=== PATIENT | male | born 1940 | race Caucasian/White ===

== ENCOUNTER → 2017-04-12 | Outpatient (CLI) | payer MEDICARE | LOC: LAB 07:05 | DX: I48.0 Paroxysmal atrial fibrillation (principal) ==

== ENCOUNTER → 2017-04-16 | Outpatient (CLI) | payer MEDICARE | LOC: RAD 12:43 | DX: M47.816 Spondylosis without myelopathy or radiculopathy, lumbar region (principal) ==

== ENCOUNTER → 2017-04-26 | Outpatient (CLI) | payer MEDICARE | LOC: LAB 07:38 | DX: I48.0 Paroxysmal atrial fibrillation (principal) ==

== ENCOUNTER 2017-05-03 08:30 | Outpatient (RCR) | payer MEDICARE | END 2017-05-03 09:00 | disposition home or self-care (01) | LOC: PT 08:30 | DX: M51.26 Other intervertebral disc displacement, lumbar region (principal); M12.88 Other specific arthropathies, not elsewhere classified, other specified site ==

== ENCOUNTER → 2017-05-21 | Outpatient (CLI) | payer MEDICARE | LOC: LAB 07:38 | DX: I10 Essential (primary) hypertension (principal); Z12.5 Encounter for screening for malignant neoplasm of prostate; Z12.11 Encounter for screening for malignant neoplasm of colon; R73.02 Impaired glucose tolerance (oral); E78.2 Mixed hyperlipidemia; N52.03 Combined arterial insufficiency and corporo-venous occlusive erectile dysfunction; M1A.0720 Idiopathic chronic gout, left ankle and foot, without tophus (tophi) ==

== ENCOUNTER → 2017-05-25 | Outpatient (CLI) | payer MEDICARE | LOC: LAB 14:19 | DX: Z12.11 Encounter for screening for malignant neoplasm of colon (principal) ==

== ENCOUNTER → 2017-06-21 | Outpatient (CLI) | payer MEDICARE ==
[~2017-06-21] VITALS: Ht 188 cm; Wt 119.1 kg
[~2017-06-21] MED LIST: ACETAMINOPHEN-H1 TA2 PO; ATORVASTATIN CA40 MG PO; ESOMEPRAZOLE MA40 M1 PO; HCTZ 25MG25 MG PO; LOPRESSOR 550 MG/TAB PO; WARFARIN SOD5 MG PO; ZYLOPRIM 100MG100 MG PO
[2017-06-21 10:00] VITALS: BP 123/84
== END ==
LOC: AMSURD 09:48
DX: I48.91 Unspecified atrial fibrillation (principal); I48.92 Unspecified atrial flutter

== ENCOUNTER → 2017-06-28 | Outpatient (CLI) | payer MEDICARE ==
[2017-06-21 10:00] VITALS: BP 123/84
[2017-06-28 09:59] LABS: PROTHROMBIN TIME 21.6 SECONDS (9.0-12.0)
== END ==
LOC: LAB 09:36
PROVIDERS: Internal Medicine Cardiovascular Disease
DX: I48.0 Paroxysmal atrial fibrillation (principal)

== ENCOUNTER → 2017-07-16 | Outpatient (CLI) | payer MEDICARE ==
[2017-06-21 10:00] VITALS: BP 123/84
[2017-07-16 08:49] LABS: PROTHROMBIN TIME 41.3 SECONDS (9.0-12.0)
== END ==
LOC: LAB 07:06
PROVIDERS: Internal Medicine
DX: I48.0 Paroxysmal atrial fibrillation (principal)

== ENCOUNTER → 2017-08-03 | Outpatient (CLI) | payer MEDICARE ==
[2017-06-21 10:00] VITALS: BP 123/84
[2017-08-03 07:37] LABS: PROTHROMBIN TIME 27.5 SECONDS (9.0-12.0)
== END ==
LOC: LAB 07:05
PROVIDERS: Internal Medicine Cardiovascular Disease
DX: Z51.81 Encounter for therapeutic drug level monitoring (principal); Z79.01 Long term (current) use of anticoagulants

== ENCOUNTER 2017-08-20 07:02 | Emergency (ER) | payer MEDICARE ==
[~2017-08-20] VITALS: Ht 188 cm; Wt 125.5 kg
[~2017-08-20 07:02] MED LIST changes: -HCTZ 25MG25 MG PO; +HYDROCHLOROTH12.5 M2 PO
[2017-08-20 07:35] LABS: EOS % 0.2 % (0.0-4.0); HEMOGLOBIN 12.9 g/dL (13.5-18.0); LYMPH# 1.5 (1.50-4.00); MEAN CELL VOLUME 97 fl (78-100); MEAN CORPUSCULAR HEMOGLOBIN 31 pg (27-31); MEAN CORPUSCULAR HGB CONC 32 g/dL (33-37); MEAN PLATELET VOLUME 11.3 fl (7.4-10.4); MONO # 0.9 (0.20-0.80); NEU # 7.4 (1.40-6.50); PLATELET COUNT 124 K/mm3 (130-400); RED BLOOD COUNT 4.11 M/mm3 (4.20-5.60); RED CELL DISTRIBUTION WIDTH 13.8 % (11.5-14.5); WHITE BLOOD COUNT 9.9 K/mm3 (4.8-10.8)
[2017-08-20] MEDS ORDERED: CELEBREX 1100 MG/CAP PO (07:40)
[2017-08-20] MEDS ORDERED: FUROSEMIDE20 MG PO (07:41)
[2017-08-20] MEDS ORDERED: PANTOPRAZOLE SO40 MG PO (07:41)
[2017-08-20] MEDS ORDERED: RANITIDINE HCL150 M1 PO (07:42)
[2017-08-20 07:45] LABS: ALBUMIN 3.5 g/dL (3.5-5.0); BUN/CREATININE RATIO 29.6 (6.0-26.0); CALCIUM 8.1 mg/dL (8.4-10.2); POTASSIUM 3.6 mmol/L (3.6-5.0); TOTAL PROTEIN 6.4 g/dL (6.3-8.2)
[2017-08-20] MEDS ORDERED: WARFARIN SOD5 MG PO (07:45)
[2017-08-20 07:49] LABS: TROPONIN-I 0.68 ng/mL (0.00-0.06)
[2017-08-20] MEDS ORDERED: LOMOTIL1 TAB PO (07:50)
[2017-08-20] MEDS ORDERED: NATURAL VITAM1000 MG (07:51)
[2017-08-20] MEDS ORDERED: WELCHOL 625MG625 MG PO (07:53)
[2017-08-20 08:03] LABS: PARTIAL THROMBOPLASTIN TIME 26.2 SECONDS (21.0-32.0)
[2017-08-20 08:39] LABS: URINE APPEARANCE CLEAR; URINE BILIRUBIN NEGATIVE (NEGATIVE); URINE BLOOD 50 ery/uL (NEGATIVE); URINE COLOR YELLOW; URINE GLUCOSE NEGATIVE (NEGATIVE); URINE KETONE NEGATIVE (NEGATIVE); URINE LEUKOCYTE ESTERASE NEGATIVE (NEGATIVE); URINE MUCUS PRESENT (NOT PRESENT); URINE NITRATE NEGATIVE (NEGATIVE); URINE PROTEIN(semi-quant) TRACE mg/dL (NEGATIVE); URINE UROBILINOGEN NORMAL (NORMAL)
[2017-08-20 14:20] VITALS: BP 121/68
== END 2017-08-20 14:34 | disposition short-term general hospital (02) ==
LOC: ED 07:02
PROVIDERS: Physician Assistant
DX: J18.9 Pneumonia, unspecified organism (principal); I11.0 Hypertensive heart disease with heart failure; I50.9 Heart failure, unspecified; I48.91 Unspecified atrial fibrillation; Z79.01 Long term (current) use of anticoagulants; K21.9 Gastro-esophageal reflux disease without esophagitis; Z95.810 Presence of automatic (implantable) cardiac defibrillator; M10.9 Gout, unspecified; Z98.890 Other specified postprocedural states; Z88.0 Allergy status to penicillin; E11.9 Type 2 diabetes mellitus without complications
CPT/HCPCS: J1940; J1956; J2185; J2930; J3370; J7050

== ENCOUNTER → 2017-08-25 | Outpatient (CLI) | payer MEDICARE ==
[2017-08-20 14:20] VITALS: BP 121/68
[~2017-08-25] MED LIST changes: +CELEBREX 1100 MG/CAP PO; +FUROSEMIDE20 MG PO; +LOMOTIL1 TAB PO; +NATURAL VITAM1000 MG; +PANTOPRAZOLE SO40 MG PO; +RANITIDINE HCL150 M1 PO; +WELCHOL 625MG625 MG PO
[2017-08-25 07:52] LABS: PROTHROMBIN TIME 20.4 SECONDS (9.0-12.0)
== END ==
LOC: LAB 07:28
PROVIDERS: Internal Medicine Cardiovascular Disease
DX: I48.0 Paroxysmal atrial fibrillation (principal)

== ENCOUNTER → 2017-09-01 | Outpatient (CLI) | payer MEDICARE ==
[2017-08-20 14:20] VITALS: BP 121/68
[2017-09-01 16:16] LABS: PROTHROMBIN TIME 53.3 SECONDS (9.0-12.0)
== END ==
LOC: LAB 14:49
PROVIDERS: Internal Medicine Cardiovascular Disease
DX: Z51.81 Encounter for therapeutic drug level monitoring (principal); Z79.01 Long term (current) use of anticoagulants

== ENCOUNTER → 2017-09-03 | Outpatient (CLI) | payer MEDICARE ==
[2017-08-20 14:20] VITALS: BP 121/68
[2017-09-03 09:21] LABS: PROTHROMBIN TIME 43.5 SECONDS (9.0-12.0)
== END ==
LOC: LAB 08:19
PROVIDERS: Internal Medicine Cardiovascular Disease
DX: Z51.81 Encounter for therapeutic drug level monitoring (principal); Z79.01 Long term (current) use of anticoagulants

== ENCOUNTER → 2017-09-07 | Outpatient (CLI) | payer MEDICARE ==
[2017-08-20 14:20] VITALS: BP 121/68
[2017-09-07 07:55] LABS: PROTHROMBIN TIME 17.5 SECONDS (9.0-12.0)
[2017-09-07 17:25] LABS: BUN/CREATININE RATIO 15.5 (6.0-26.0); POTASSIUM 4.1 mmol/L (3.6-5.0)
== END ==
LOC: LAB 07:01
PROVIDERS: Internal Medicine Cardiovascular Disease
DX: I48.0 Paroxysmal atrial fibrillation (principal); I10 Essential (primary) hypertension

== ENCOUNTER → 2017-09-14 | Outpatient (CLI) | payer MEDICARE ==
[2017-08-20 14:20] VITALS: BP 121/68
[2017-09-14 18:43] LABS: PROTHROMBIN TIME 34.8 SECONDS (9.0-12.0)
== END ==
LOC: LAB 16:30
PROVIDERS: Internal Medicine Cardiovascular Disease
DX: I48.0 Paroxysmal atrial fibrillation (principal)

== ENCOUNTER → 2017-09-21 | Outpatient (CLI) | payer MEDICARE ==
[2017-09-21 11:35] LABS: PROTHROMBIN TIME 92.2 SECONDS (9.0-12.0)
== END ==
LOC: LAB 09:53
PROVIDERS: Internal Medicine Cardiovascular Disease
DX: I48.0 Paroxysmal atrial fibrillation (principal)

== ENCOUNTER → 2017-09-27 | Outpatient (CLI) | payer MEDICARE ==
[2017-09-27 08:53] LABS: PROTHROMBIN TIME 13.3 SECONDS (9.0-12.0)
== END ==
LOC: LAB 07:00
PROVIDERS: Internal Medicine Cardiovascular Disease
DX: I48.0 Paroxysmal atrial fibrillation (principal)

== ENCOUNTER → 2017-10-04 | Outpatient (CLI) | payer MEDICARE ==
[2017-10-04 07:47] LABS: PROTHROMBIN TIME 37.7 SECONDS (9.0-12.0)
== END ==
LOC: LAB 07:07
PROVIDERS: Internal Medicine Cardiovascular Disease
DX: I48.0 Paroxysmal atrial fibrillation (principal)

== ENCOUNTER → 2017-10-18 | Outpatient (CLI) | payer MEDICARE ==
[2017-10-18 08:14] LABS: PROTHROMBIN TIME 44.2 SECONDS (9.0-12.0)
== END ==
LOC: LAB 07:02
PROVIDERS: Internal Medicine Cardiovascular Disease
DX: I48.0 Paroxysmal atrial fibrillation (principal)

== ENCOUNTER → 2017-11-01 | Outpatient (CLI) | payer MEDICARE ==
[2017-11-01 07:36] LABS: PROTHROMBIN TIME 24.7 SECONDS (9.0-12.0)
== END ==
LOC: LAB 07:09
PROVIDERS: Internal Medicine Cardiovascular Disease
DX: Z51.81 Encounter for therapeutic drug level monitoring (principal); Z79.01 Long term (current) use of anticoagulants

== ENCOUNTER → 2017-11-15 | Outpatient (CLI) | payer MEDICARE ==
[2017-11-15 07:25] LABS: PROTHROMBIN TIME 34.4 SECONDS (9.0-12.0)
== END ==
LOC: LAB 07:00
PROVIDERS: Internal Medicine Cardiovascular Disease
DX: Z51.81 Encounter for therapeutic drug level monitoring (principal); Z79.01 Long term (current) use of anticoagulants

== ENCOUNTER → 2017-12-06 | Outpatient (CLI) | payer MEDICARE ==
[2017-12-06 07:56] LABS: PROTHROMBIN TIME 37.8 SECONDS (9.0-12.0)
== END ==
LOC: LAB 06:55
PROVIDERS: Internal Medicine Cardiovascular Disease
DX: Z51.81 Encounter for therapeutic drug level monitoring (principal); Z79.01 Long term (current) use of anticoagulants

== ENCOUNTER → 2017-12-28 | Outpatient (CLI) | payer MEDICARE ==
[2017-12-14 18:15] VITALS: BP 112/68
[~2017-12-28] MED LIST changes: +AMIODARONE200 MG PO; +NORCO 325 MG-51 TA1 PO; +ZANTAC300 MG PO
[2017-12-28 10:37] LABS: PROTHROMBIN TIME 19.8 SECONDS (9.0-12.0)
== END ==
LOC: LAB 10:17
PROVIDERS: Internal Medicine Cardiovascular Disease
DX: Z51.81 Encounter for therapeutic drug level monitoring (principal); Z79.01 Long term (current) use of anticoagulants

== ENCOUNTER 2018-01-14 15:21 | Outpatient (RCR) | payer MEDICARE ==
[2017-12-14 18:15] VITALS: BP 112/68
== END 2018-04-12 14:18 | disposition home or self-care (01) ==
LOC: CARDREHAB 15:21
DX: Z48.812 Encounter for surgical aftercare following surgery on the circulatory system (principal); Z95.5 Presence of coronary angioplasty implant and graft

== ENCOUNTER → 2018-01-24 | Outpatient (CLI) | payer MEDICARE ==
[2017-12-14 18:15] VITALS: BP 112/68
[2018-01-24 07:43] LABS: PROTHROMBIN TIME 19.9 SECONDS (9.0-12.0)
== END ==
LOC: LAB 07:19
PROVIDERS: Internal Medicine Cardiovascular Disease
DX: Z51.81 Encounter for therapeutic drug level monitoring (principal); Z79.01 Long term (current) use of anticoagulants

== ENCOUNTER → 2018-02-21 | Outpatient (CLI) | payer MEDICARE ==
[2017-12-14 18:15] VITALS: BP 112/68
[2018-02-21 09:39] LABS: PROTHROMBIN TIME 14.4 SECONDS (9.0-12.0)
== END ==
LOC: LAB 09:08
PROVIDERS: Internal Medicine Cardiovascular Disease
DX: Z51.81 Encounter for therapeutic drug level monitoring (principal); Z79.01 Long term (current) use of anticoagulants

== ENCOUNTER → 2018-03-07 | Outpatient (CLI) | payer MEDICARE ==
[2017-12-14 18:15] VITALS: BP 112/68
[2018-03-07 08:51] LABS: PROTHROMBIN TIME 15.5 SECONDS (9.0-12.0)
== END ==
LOC: LAB 07:07
PROVIDERS: Internal Medicine Cardiovascular Disease
DX: Z51.81 Encounter for therapeutic drug level monitoring (principal); Z79.01 Long term (current) use of anticoagulants

== ENCOUNTER → 2018-03-28 | Outpatient (CLI) | payer MEDICARE ==
[2017-12-14 18:15] VITALS: BP 112/68
[2018-03-28 08:19] LABS: PROTHROMBIN TIME 24.9 SECONDS (9.0-12.0)
== END ==
LOC: LAB 07:12
PROVIDERS: Internal Medicine Cardiovascular Disease
DX: Z51.81 Encounter for therapeutic drug level monitoring (principal); Z79.01 Long term (current) use of anticoagulants

== ENCOUNTER 2018-03-29 13:42 | Emergency (ER) | payer MEDICARE ==
[~2018-03-29] VITALS: Ht 188 cm; Wt 111.4 kg
[2018-03-29 14:22] LABS: EOS # 0.1 (0.04-0.40); EOS % 1.3 % (0.0-4.0); HEMATOCRIT 44.2 % (42.0-52.0); HEMOGLOBIN 14.6 g/dL (13.5-18.0); LYMPH# 1.8 (1.50-4.00); MEAN CELL VOLUME 95 fl (78-100); MEAN CORPUSCULAR HEMOGLOBIN 32 pg (27-31); MEAN CORPUSCULAR HGB CONC 33 g/dL (33-37); MEAN PLATELET VOLUME 11.2 fl (7.4-10.4); MONO # 1.1 (0.20-0.80); NEU # 7.2 (1.40-6.50); PLATELET COUNT 151 K/mm3 (130-400); RED BLOOD COUNT 4.64 M/mm3 (4.20-5.60); RED CELL DISTRIBUTION WIDTH 13.9 % (11.5-14.5); WHITE BLOOD COUNT 10.2 K/mm3 (4.8-10.8)
[2018-03-29 14:31] LABS: ALBUMIN 3.6 g/dL (3.5-5.0); BUN/CREATININE RATIO 27.8 (6.0-26.0); CALCIUM 8.5 mg/dL (8.4-10.2); POTASSIUM 4.1 mmol/L (3.6-5.0); TOTAL PROTEIN 6.3 g/dL (6.3-8.2)
[2018-03-29 14:37] LABS: PROTHROMBIN TIME 26.2 SECONDS (9.0-12.0)
[2018-03-29 16:45] VITALS: BP 128/91
== END 2018-03-29 16:10 | disposition home or self-care (01) ==
LOC: ED 13:42
PROVIDERS: Nurse Practitioner Primary Care
DX: I11.0 Hypertensive heart disease with heart failure (principal); I50.9 Heart failure, unspecified; I48.91 Unspecified atrial fibrillation; I25.10 Atherosclerotic heart disease of native coronary artery without angina pectoris; Z95.5 Presence of coronary angioplasty implant and graft; Z95.810 Presence of automatic (implantable) cardiac defibrillator; Z79.01 Long term (current) use of anticoagulants; Z79.899 Other long term (current) drug therapy
CPT/HCPCS: J1940

== ENCOUNTER → 2018-03-30 | Outpatient (CLI) | payer MEDICARE ==
[2018-03-29 16:45] VITALS: BP 128/91
== END ==
LOC: RAD 15:26
DX: M16.11 Unilateral primary osteoarthritis, right hip (principal); M51.37 Other intervertebral disc degeneration, lumbosacral region; R10.2 Pelvic and perineal pain; Z96.642 Presence of left artificial hip joint

== ENCOUNTER 2018-04-28 10:30 | Outpatient (RCR) | payer MEDICARE ==
[2018-05-03] MEDS ORDERED: LOMOTIL1 TAB PO (12:23)
[2018-05-03] MEDS ORDERED: ZOFRAN ODT4 MG PO (14:13)
[2018-05-03] MEDS ORDERED: NORCO 325 MG-51 TA1 PO (14:13)
[2018-06-08] MEDS ORDERED: LASIX20 M1 PO (15:59)
[2018-06-08] MEDS ORDERED: LOMOTIL TAB 01 UDTAB (16:00)
[2018-06-08] MEDS ORDERED: METOPROLOL SUCC25 M1 PO (16:01)
[2018-06-08] MEDS ORDERED: ELIQUIS5 MG PO (16:01)
== END 2018-04-28 11:00 | disposition home or self-care (01) ==
LOC: PT 10:30
DX: M70.62 Trochanteric bursitis, left hip (principal); M25.551 Pain in right hip; M54.5 Low back pain
CPT/HCPCS: G8978-GP; G8979-GP

== ENCOUNTER → 2018-05-02 | Outpatient (CLI) | payer MEDICARE ==
[~2018-05-02] MED LIST changes: +ZOFRAN ODT4 MG PO
== END ==
LOC: RAD 11:55
DX: S32.010A Wedge compression fracture of first lumbar vertebra, initial encounter for closed fracture (principal); M47.894 Other spondylosis, thoracic region

== ENCOUNTER → 2018-05-25 | Outpatient (CLI) | payer MEDICARE ==
[2018-05-03 14:50] VITALS: BP 113/76
== END ==
LOC: RAD 10:14 → MAMMO 10:45
DX: S32.010A Wedge compression fracture of first lumbar vertebra, initial encounter for closed fracture (principal); Z96.7 Presence of other bone and tendon implants

== ENCOUNTER → 2018-06-08 | Outpatient (CLI) | payer MEDICARE ==
[~2018-06-08] VITALS: Ht 188 cm; Wt 109.1 kg
[~2018-06-08] MED LIST changes: +ELIQUIS5 MG PO; +LASIX20 M1 PO; +LOMOTIL TAB 01 UDTAB; +METOPROLOL SUCC25 M1 PO
[2018-06-08 16:03] VITALS: BP 104/61
== END ==
LOC: AMSURD 15:15
DX: I48.91 Unspecified atrial fibrillation (principal)

== ENCOUNTER → 2018-08-05 | Outpatient (CLI) | payer BC ==
[2018-06-08 16:03] VITALS: BP 104/61
== END ==
LOC: CARDLAB 07:59 → CARDREHAB 12:27 → CARDLAB 14:46
DX: G47.33 Obstructive sleep apnea (adult) (pediatric) (principal); R06.83 Snoring; G47.36 Sleep related hypoventilation in conditions classified elsewhere; G47.10 Hypersomnia, unspecified; E66.9 Obesity, unspecified; Z68.38 Body mass index [BMI] 38.0-38.9, adult
CPT/HCPCS: G0399

== ENCOUNTER → 2018-11-14 | Outpatient (CLI) | payer MEDICARE ==
[~2018-11-14] VITALS: Ht 188 cm; Wt 113.6 kg
[~2018-11-14] MED LIST changes: +ASPIR LOW81 MG PO
[2018-11-14 16:45] LABS: EOS # 0.1 (0.04-0.40); EOS % 1.7 % (0.0-4.0); HEMATOCRIT 43.5 % (42.0-52.0); HEMOGLOBIN 14.1 g/dL (13.5-18.0); LYMPH# 1.4 (1.50-4.00); MEAN CELL VOLUME 95 fl (78-100); MEAN CORPUSCULAR HEMOGLOBIN 31 pg (27-31); MEAN CORPUSCULAR HGB CONC 32 g/dL (33-37); MEAN PLATELET VOLUME 10.8 fl (7.4-10.4); MONO # 0.7 (0.20-0.80); NEU # 5.6 (1.40-6.50); PLATELET COUNT 169 K/mm3 (130-400); RED BLOOD COUNT 4.58 M/mm3 (4.20-5.60); RED CELL DISTRIBUTION WIDTH 13.2 % (11.5-14.5); WHITE BLOOD COUNT 7.9 K/mm3 (4.8-10.8)
[2018-11-14 17:10] LABS: ALBUMIN 4.1 g/dL (3.5-5.0); CALCIUM 8.9 mg/dL (8.4-10.2); POTASSIUM 3.9 mmol/L (3.6-5.0); TOTAL BILIRUBIN 0.7 mg/dL (0.2-1.3); TOTAL PROTEIN 7.2 g/dL (6.3-8.2)
[2018-11-14 17:38] VITALS: BP 126/70
== END ==
LOC: AMSURD 16:31
PROVIDERS: Internal Medicine
DX: I25.10 Atherosclerotic heart disease of native coronary artery without angina pectoris (principal); R06.00 Dyspnea, unspecified; R07.89 Other chest pain; R73.02 Impaired glucose tolerance (oral)

== ENCOUNTER → 2018-12-15 | Outpatient (CLI) | payer MEDICARE ==
[2018-11-14 17:38] VITALS: BP 126/70
[2018-12-15 10:47] LABS: ALBUMIN 3.9 g/dL (3.5-5.0); CALCIUM 8.8 mg/dL (8.4-10.2); POTASSIUM 4.3 mmol/L (3.6-5.0); TOTAL PROTEIN 6.7 g/dL (6.3-8.2)
== END ==
LOC: LAB 10:07
PROVIDERS: Internal Medicine
DX: I25.10 Atherosclerotic heart disease of native coronary artery without angina pectoris (principal); R73.02 Impaired glucose tolerance (oral)

== ENCOUNTER → 2019-06-27 | Outpatient (CLI) | payer MEDICARE ==
[2019-05-24 14:53] VITALS: BP 137/80
[~2019-06-27] MED LIST changes: +COZAAR25 M1 PO; +PEPCID40 M1 PO
[2019-06-27 09:50] LABS: EOS # 0.3 (0.04-0.40); HEMATOCRIT 43.3 % (42.0-52.0); HEMOGLOBIN 14.2 g/dL (13.5-18.0); LYMPH# 1.5 (1.50-4.00); MEAN CELL VOLUME 93 fl (78-100); MEAN CORPUSCULAR HEMOGLOBIN 31 pg (27-31); MEAN CORPUSCULAR HGB CONC 33 g/dL (33-37); MEAN PLATELET VOLUME 11.1 fl (7.4-10.4); MONO # 0.7 (0.20-0.80); PLATELET COUNT 167 K/mm3 (130-400); RED BLOOD COUNT 4.65 M/mm3 (4.20-5.60); RED CELL DISTRIBUTION WIDTH 12.7 % (11.5-14.5); WHITE BLOOD COUNT 6.5 K/mm3 (4.8-10.8)
[2019-06-27 10:04] LABS: ALBUMIN 3.9 g/dL (3.4-4.8); POTASSIUM 4.2 mmol/L (3.5-5.1); URINE APPEARANCE CLEAR; URINE BILIRUBIN NEGATIVE (NEGATIVE); URINE BLOOD TRACE (NEGATIVE); URINE COLOR YELLOW; URINE GLUCOSE NEGATIVE (NEGATIVE); URINE KETONE NEGATIVE (NEGATIVE); URINE LEUKOCYTE ESTERASE NEGATIVE (NEGATIVE); URINE MUCUS PRESENT (NOT PRESENT); URINE NITRATE NEGATIVE (NEGATIVE); URINE PROTEIN(semi-quant) NEGATIVE (NEGATIVE); URINE UROBILINOGEN NORMAL (NORMAL)
[2019-06-27 10:48] LABS: ERYTHROCYTE SEDIMENTATION RATE 6 mm/hr (0-20)
[2019-06-28 01:54] LABS: TESTOSTERONE 683 ng/dL (221-716)
[2019-06-28 03:38] LABS: CREATININE OTHER SOURCE 94 mg/dL (())
== END ==
LOC: LAB 09:32
PROVIDERS: Internal Medicine
DX: Z12.5 Encounter for screening for malignant neoplasm of prostate (principal); Z12.11 Encounter for screening for malignant neoplasm of colon; S32.010A Wedge compression fracture of first lumbar vertebra, initial encounter for closed fracture; E78.5 Hyperlipidemia, unspecified; N52.03 Combined arterial insufficiency and corporo-venous occlusive erectile dysfunction; I10 Essential (primary) hypertension; R73.02 Impaired glucose tolerance (oral)

== ENCOUNTER → 2019-06-30 | Outpatient (CLI) | payer MEDICARE ==
[2019-05-24 14:53] VITALS: BP 137/80
== END ==
LOC: LAB 13:38
DX: Z12.11 Encounter for screening for malignant neoplasm of colon (principal); I10 Essential (primary) hypertension; R73.02 Impaired glucose tolerance (oral)

== ENCOUNTER 2019-08-17 14:18 | Emergency (ER) | payer MEDICARE ==
[~2019-08-17] VITALS: Wt 115.5 kg
[2019-08-17 15:04] LABS: HEMATOCRIT 43.2 % (42.0-52.0); HEMOGLOBIN 14.2 g/dL (13.5-18.0); MEAN CELL VOLUME 93 fl (78-100); MEAN CORPUSCULAR HEMOGLOBIN 31 pg (27-31); MEAN CORPUSCULAR HGB CONC 33 g/dL (33-37); PLATELET COUNT 109 K/mm3 (130-400); RED BLOOD COUNT 4.65 M/mm3 (4.20-5.60); WHITE BLOOD COUNT 8.7 K/mm3 (4.8-10.8)
[2019-08-17 15:08] LABS: ALBUMIN 3.9 g/dL (3.4-4.8)
[2019-08-17 15:09] LABS: POTASSIUM 3.8 mmol/L (3.5-5.1); SODIUM 139 mmol/L (136-145)
[2019-08-17 15:10] LABS: CALCIUM 8.8 mg/dL (8.3-10.5)
[2019-08-17 15:11] LABS: GLUCOSE 142 mg/dL (75-110)
[2019-08-17 15:12] LABS: CARBON DIOXIDE 20 mmol/L (23-31)
[2019-08-17 15:13] LABS: TOTAL BILIRUBIN 1.1 mg/dL (0.2-1.2)
[2019-08-17 15:16] LABS: AST-SGOT 29 U/L (5-34)
[2019-08-17 15:17] LABS: ALT/SGPT 26 U/L (0-55)
[2019-08-17 15:25] LABS: TROPONIN-I < 0.03 ng/mL (<0.030)
[2019-08-17 15:29] LABS: BAND 8 % (0-10); LYMPHOCYTE 9 % (20-51); MEAN PLATELET VOLUME 12.1 fl (7.4-10.4); MONOCYTE 5 % (3-10); NEUTROPHILS 75 % (42-75)
[2019-08-17] MEDS ORDERED: WELCHOL 625MG625 MG (15:31)
[2019-08-17 16:06] LABS: PH-URINE 6.5 (5.0 - 8.0); URINE APPEARANCE CLEAR; URINE COLOR YELLOW; URINE PROTEIN(semi-quant) TRACE mg/dL (NEGATIVE)
[2019-08-17 16:07] LABS: URINE BILIRUBIN NEGATIVE (NEGATIVE); URINE BLOOD TRACE (NEGATIVE); URINE GLUCOSE NEGATIVE (NEGATIVE); URINE KETONE NEGATIVE (NEGATIVE); URINE LEUKOCYTE ESTERASE TRACE (NEGATIVE); URINE MUCUS PRESENT (NOT PRESENT); URINE NITRATE NEGATIVE (NEGATIVE); URINE UROBILINOGEN NORMAL (NORMAL)
[2019-08-17 20:35] VITALS: BP 86/44
== END 2019-08-17 20:35 | disposition short-term general hospital (02) ==
LOC: ED 14:18
PROVIDERS: Nurse Practitioner Family
DX: A41.9 Sepsis, unspecified organism (principal); J84.9 Interstitial pulmonary disease, unspecified; R33.9 Retention of urine, unspecified; R74.8 Abnormal levels of other serum enzymes; R79.89 Other specified abnormal findings of blood chemistry; I48.91 Unspecified atrial fibrillation; I11.0 Hypertensive heart disease with heart failure; I50.9 Heart failure, unspecified; I25.10 Atherosclerotic heart disease of native coronary artery without angina pectoris; M10.9 Gout, unspecified; K21.9 Gastro-esophageal reflux disease without esophagitis; G47.33 Obstructive sleep apnea (adult) (pediatric); M48.061 Spinal stenosis, lumbar region without neurogenic claudication; M54.16 Radiculopathy, lumbar region; Z79.82 Long term (current) use of aspirin; Z87.891 Personal history of nicotine dependence; Z95.5 Presence of coronary angioplasty implant and graft; Z95.0 Presence of cardiac pacemaker; Z88.0 Allergy status to penicillin
CPT/HCPCS: A4216; J0696; J1885; J2405; J7030; J7060

== ENCOUNTER → 2019-10-12 | Outpatient (CLI) | payer MEDICARE ==
[~2019-10-12] MED LIST changes: +WELCHOL 625MG625 MG
[2019-10-12 10:41] LABS: POTASSIUM 4.2 mmol/L (3.5-5.1)
[2019-10-12 10:42] LABS: CALCIUM 8.9 mg/dL (8.3-10.5)
[2019-10-12 10:47] LABS: PARTIAL THROMBOPLASTIN TIME 23.6 SECONDS (21.0-32.0); PROTHROMBIN TIME 11.6 SECONDS (9.0-12.0)
[2019-10-12 10:49] LABS: EOS # 0.3 (0.04-0.40); EOS % 4.1 % (0.0-4.0); HEMATOCRIT 43.3 % (42.0-52.0); HEMOGLOBIN 13.7 g/dL (13.5-18.0); LYMPH# 1.6 (1.50-4.00); MEAN CELL VOLUME 96 fl (78-100); MEAN CORPUSCULAR HEMOGLOBIN 30 pg (27-31); MEAN CORPUSCULAR HGB CONC 32 g/dL (33-37); MEAN PLATELET VOLUME 11.2 fl (7.4-10.4); MONO # 0.8 (0.20-0.80); PLATELET COUNT 177 K/mm3 (130-400); RED BLOOD COUNT 4.51 M/mm3 (4.20-5.60); RED CELL DISTRIBUTION WIDTH 13.3 % (11.5-14.5); WHITE BLOOD COUNT 7.8 K/mm3 (4.8-10.8)
[2019-10-12 10:51] LABS: MAGNESIUM 1.95 mg/dL (1.60-2.60)
[2019-10-12 11:23] LABS: URINE APPEARANCE CLEAR; URINE BILIRUBIN NEGATIVE (NEGATIVE); URINE BLOOD NEGATIVE (NEGATIVE); URINE COLOR YELLOW; URINE GLUCOSE NEGATIVE (NEGATIVE); URINE KETONE NEGATIVE (NEGATIVE); URINE LEUKOCYTE ESTERASE NEGATIVE (NEGATIVE); URINE NITRATE NEGATIVE (NEGATIVE); URINE PROTEIN(semi-quant) TRACE mg/dL (NEGATIVE); URINE UROBILINOGEN NORMAL (NORMAL); URINE WBC 0-1 /hpf (0-3)
== END ==
LOC: LAB 10:09
PROVIDERS: Internal Medicine
DX: Z01.818 Encounter for other preprocedural examination (principal); M48.061 Spinal stenosis, lumbar region without neurogenic claudication; M47.816 Spondylosis without myelopathy or radiculopathy, lumbar region; S32.010A Wedge compression fracture of first lumbar vertebra, initial encounter for closed fracture; R73.02 Impaired glucose tolerance (oral)

== ENCOUNTER → 2020-01-29 | Outpatient (CLI) | payer MEDICARE ==
[2020-01-29 12:38] LABS: EOS # 0.1 (0.04-0.40); EOS % 1.6 % (0.0-4.0); HEMATOCRIT 39.8 % (42.0-52.0); HEMOGLOBIN 12.4 g/dL (13.5-18.0); LYMPH# 1.3 (1.50-4.00); MEAN CELL VOLUME 95 fl (78-100); MEAN CORPUSCULAR HEMOGLOBIN 30 pg (27-31); MEAN CORPUSCULAR HGB CONC 31 g/dL (33-37); MEAN PLATELET VOLUME 10.6 fl (7.4-10.4); MONO # 0.8 (0.20-0.80); NEU # 6.4 (1.40-6.50); PLATELET COUNT 165 K/mm3 (130-400); RED CELL DISTRIBUTION WIDTH 13.6 % (11.5-14.5); WHITE BLOOD COUNT 8.7 K/mm3 (4.8-10.8)
[2020-01-29 14:09] LABS: ALBUMIN 3.7 g/dL (3.4-4.8)
[2020-01-29 14:10] LABS: POTASSIUM 4.2 mmol/L (3.5-5.1)
[2020-01-29 14:11] LABS: CALCIUM 8.7 mg/dL (8.3-10.5)
[2020-01-29 14:12] LABS: TOTAL PROTEIN 6.8 g/dL (6.2-8.1)
[2020-01-29 14:14] LABS: TOTAL BILIRUBIN 0.7 mg/dL (0.2-1.2)
== END ==
LOC: LAB 12:13
PROVIDERS: Internal Medicine
DX: Z01.818 Encounter for other preprocedural examination (principal); M48.061 Spinal stenosis, lumbar region without neurogenic claudication; R73.02 Impaired glucose tolerance (oral)

== ENCOUNTER → 2020-02-01 | Outpatient (CLI) | payer MEDICARE | LOC: RAD 08:54 | DX: N20.0 Calculus of kidney (principal); N40.0 Benign prostatic hyperplasia without lower urinary tract symptoms; R63.4 Abnormal weight loss; Z80.0 Family history of malignant neoplasm of digestive organs | CPT/HCPCS: Q9967 ==

== ENCOUNTER → 2020-04-25 | Outpatient (CLI) | payer MEDICARE ==
[2020-04-25 14:34] LABS: EOS # 0.2 (0.04-0.40); EOS % 1.3 % (0.0-4.0); HEMATOCRIT 38.3 % (42.0-52.0); HEMOGLOBIN 12.2 g/dL (13.5-18.0); LYMPH# 1.7 (1.50-4.00); MEAN CELL VOLUME 94 fl (78-100); MEAN CORPUSCULAR HEMOGLOBIN 30 pg (27-31); MEAN CORPUSCULAR HGB CONC 32 g/dL (33-37); MONO # 1.3 (0.20-0.80); NEU # 10.5 (1.40-6.50); PLATELET COUNT 269 K/mm3 (130-400); RED BLOOD COUNT 4.09 M/mm3 (4.20-5.60); RED CELL DISTRIBUTION WIDTH 13.5 % (11.5-14.5); WHITE BLOOD COUNT 13.9 K/mm3 (4.8-10.8)
[2020-04-25 14:43] LABS: PROTHROMBIN TIME 11.3 SECONDS (9.0-12.0)
[2020-04-25 14:44] LABS: ALBUMIN 3.4 g/dL (3.4-4.8); POTASSIUM 4.3 mmol/L (3.5-5.1)
[2020-04-25 14:46] LABS: CALCIUM 8.6 mg/dL (8.3-10.5)
[2020-04-25 14:47] LABS: TOTAL PROTEIN 7.4 g/dL (6.2-8.1)
[2020-04-25 14:49] LABS: TOTAL BILIRUBIN 0.4 mg/dL (0.2-1.2)
[2020-04-25 14:54] LABS: MAGNESIUM 1.92 mg/dL (1.60-2.60)
[2020-04-25 14:59] LABS: PH-URINE 5.5 (5.0 - 8.0); URINE APPEARANCE CLOUDY; URINE COLOR YELLOW
[2020-04-25 15:00] LABS: URINE BILIRUBIN NEGATIVE (NEGATIVE); URINE BLOOD 250 ery/uL (NEGATIVE); URINE GLUCOSE NEGATIVE (NEGATIVE); URINE KETONE NEGATIVE (NEGATIVE); URINE LEUKOCYTE ESTERASE 2+ (NEGATIVE); URINE NITRATE POSITIVE (NEGATIVE); URINE PROTEIN(semi-quant) 1+ mg/dL (NEGATIVE); URINE UROBILINOGEN NORMAL (NORMAL); URINE WBC 31-50 /hpf (0-3)
== END ==
LOC: AMSURD 14:21
PROVIDERS: Internal Medicine
DX: Z01.818 Encounter for other preprocedural examination (principal); M48.061 Spinal stenosis, lumbar region without neurogenic claudication

== ENCOUNTER 2020-05-26 19:16 | Inpatient (IN) | payer MEDICARE ==
[~2020-05-26] VITALS: Ht 188 cm; Wt 100.0 kg
[2020-05-28 12:15] VITALS: BP 108/59
[2020-05-28] MEDS ORDERED: GOOD NEIGH1200 MG/15 PO (15:08)
[2020-05-28] MEDS ORDERED: PROTONIX TR40 M1 PO (15:09)
[2020-05-28] MEDS ORDERED: SENNA8.6 M1 PO (15:09)
[2020-05-28] MEDS ORDERED: LEVOFLOXACIN750 MG PO (15:09)
[2020-05-28] MEDS ORDERED: NORCO 325 MG-7.1 TA1 PO (15:10)
[2020-05-28 18:26] VITALS: BP 128/68
[2020-05-29 00:18] LABS: PH-URINE 5.5 (5.0 - 8.0); URINE APPEARANCE HAZY; URINE BILIRUBIN NEGATIVE (NEGATIVE); URINE BLOOD 250 ery/uL (NEGATIVE); URINE COLOR YELLOW; URINE GLUCOSE NEGATIVE (NEGATIVE); URINE KETONE NEGATIVE (NEGATIVE); URINE LEUKOCYTE ESTERASE 2+ (NEGATIVE); URINE NITRATE NEGATIVE (NEGATIVE); URINE PROTEIN(semi-quant) TRACE mg/dL (NEGATIVE); URINE UROBILINOGEN NORMAL (NORMAL); URINE WBC 31-50 /hpf (0-3)
[2020-05-29 05:44] VITALS: BP 151/63
[2020-05-29 05:53] LABS: EOS # 0.4 (0.04-0.40); EOS % 3.6 % (0.0-4.0); HEMATOCRIT 33.6 % (42.0-52.0); HEMOGLOBIN 10.6 g/dL (13.5-18.0); LYMPH# 1.7 (1.50-4.00); MEAN CELL VOLUME 93 fl (78-100); MEAN CORPUSCULAR HEMOGLOBIN 29 pg (27-31); MEAN CORPUSCULAR HGB CONC 32 g/dL (33-37); MEAN PLATELET VOLUME 9.6 fl (7.4-10.4); MONO # 1.2 (0.20-0.80); NEU # 8.7 (1.40-6.50); PLATELET COUNT 275 K/mm3 (130-400); RED BLOOD COUNT 3.62 M/mm3 (4.20-5.60); RED CELL DISTRIBUTION WIDTH 13.6 % (11.5-14.5); WHITE BLOOD COUNT 12.2 K/mm3 (4.8-10.8)
[2020-05-29 06:08] LABS: ALBUMIN 2.9 g/dL (3.4-4.8)
[2020-05-29 06:09] LABS: CALCIUM 7.9 mg/dL (8.3-10.5)
[2020-05-29 06:10] LABS: TOTAL PROTEIN 6.8 g/dL (6.2-8.1)
[2020-05-29 06:12] LABS: TOTAL BILIRUBIN 0.5 mg/dL (0.2-1.2)
[2020-05-29 17:16] VITALS: BP 123/67
[2020-05-30 05:41] VITALS: BP 129/75
[2020-05-30 17:08] VITALS: BP 124/72
[2020-05-31 06:16] VITALS: BP 123/72
[2020-05-31 17:13] VITALS: BP 149/87
[2020-06-01 06:09] VITALS: BP 153/73
[2020-06-01 17:19] VITALS: BP 126/70
[2020-06-02 05:49] VITALS: BP 126/71
[2020-06-02 17:37] VITALS: BP 126/64
[2020-06-03 05:40] VITALS: BP 133/71
[2020-06-03 17:03] VITALS: BP 151/75
[2020-06-04 05:31] VITALS: BP 143/84
[2020-06-04 16:14] VITALS: BP 146/73
[2020-06-05 06:04] VITALS: BP 123/67
[2020-06-05 16:49] VITALS: BP 127/71
[2020-06-05 17:14] LABS: HEMATOCRIT 34.3 % (42.0-52.0); HEMOGLOBIN 10.6 g/dL (13.5-18.0); MEAN CELL VOLUME 93 fl (78-100); MEAN CORPUSCULAR HEMOGLOBIN 29 pg (27-31); MEAN CORPUSCULAR HGB CONC 31 g/dL (33-37); MEAN PLATELET VOLUME 9.6 fl (7.4-10.4); PLATELET COUNT 259 K/mm3 (130-400); RED BLOOD COUNT 3.69 M/mm3 (4.20-5.60); RED CELL DISTRIBUTION WIDTH 14.2 % (11.5-14.5); WHITE BLOOD COUNT 11.8 K/mm3 (4.8-10.8)
[2020-06-05 17:21] LABS: LYMPHOCYTE 11 % (20-51); MONOCYTE 15 % (3-10); NEUTROPHILS 74 % (42-75)
[2020-06-05 17:22] LABS: ALBUMIN 3.1 g/dL (3.4-4.8); POTASSIUM 4.4 mmol/L (3.5-5.1)
[2020-06-05 17:23] LABS: CALCIUM 8.3 mg/dL (8.3-10.5)
[2020-06-05 17:24] LABS: TOTAL PROTEIN 7.1 g/dL (6.2-8.1)
[2020-06-06 05:29] VITALS: BP 137/72
[2020-06-06 17:22] VITALS: BP 141/78
[2020-06-07 05:20] VITALS: BP 122/68
[2020-06-07 16:40] LABS: URINE APPEARANCE CLEAR; URINE BILIRUBIN NEGATIVE (NEGATIVE); URINE BLOOD TRACE (NEGATIVE); URINE COLOR YELLOW; URINE GLUCOSE NEGATIVE (NEGATIVE); URINE KETONE NEGATIVE (NEGATIVE); URINE LEUKOCYTE ESTERASE 2+ (NEGATIVE); URINE NITRATE NEGATIVE (NEGATIVE); URINE PROTEIN(semi-quant) TRACE mg/dL (NEGATIVE); URINE UROBILINOGEN NORMAL (NORMAL); URINE WBC >50 /hpf (0-3)
[2020-06-07 16:41] LABS: URINE MUCUS PRESENT (NOT PRESENT)
[2020-06-07 16:46] VITALS: BP 134/59
[2020-06-08 05:32] VITALS: BP 146/85
[2020-06-08 18:00] VITALS: BP 115/67
[2020-06-09 06:10] VITALS: BP 161/75
[2020-06-09 18:16] VITALS: BP 138/74
[2020-06-10 06:28] VITALS: BP 156/84
[2020-06-10 07:40] LABS: POTASSIUM 4.4 mmol/L (3.5-5.1)
[2020-06-10 07:41] LABS: CALCIUM 8.6 mg/dL (8.3-10.5)
[2020-06-10 17:31] VITALS: BP 138/75
[2020-06-11 06:07] VITALS: BP 107/62
[2020-06-11 17:34] VITALS: BP 109/65
[2020-06-12 06:03] VITALS: BP 143/76
[2020-06-12 17:26] VITALS: BP 144/68
[2020-06-13 05:35] VITALS: BP 113/69
[2020-06-13] MEDS ORDERED: BACTRIM DS TAB1 EACH PO (08:32)
[2020-06-13] MEDS ORDERED: CELEBREX 1100 MG/CAP PO (08:34)
== END 2020-06-13 10:06 | disposition home health service (06) | DRG 948 ==
LOC: MED/SURG 19:16
PROVIDERS: Physician Assistant; ADMIT Nurse Practitioner Family
DX: R53.81 Other malaise (principal); I47.2 Ventricular tachycardia; I50.32 Chronic diastolic (congestive) heart failure; N39.0 Urinary tract infection, site not specified; N17.9 Acute kidney failure, unspecified; I25.10 Atherosclerotic heart disease of native coronary artery without angina pectoris; I11.0 Hypertensive heart disease with heart failure; I48.91 Unspecified atrial fibrillation; N45.1 Epididymitis; M17.0 Bilateral primary osteoarthritis of knee; N40.0 Benign prostatic hyperplasia without lower urinary tract symptoms; M19.90 Unspecified osteoarthritis, unspecified site; K21.9 Gastro-esophageal reflux disease without esophagitis; E66.9 Obesity, unspecified; Z68.28 Body mass index [BMI] 28.0-28.9, adult; G89.29 Other chronic pain; M54.9 Dorsalgia, unspecified; E78.5 Hyperlipidemia, unspecified; Z79.891 Long term (current) use of opiate analgesic; Z95.810 Presence of automatic (implantable) cardiac defibrillator; Z86.73 Personal history of transient ischemic attack (TIA), and cerebral infarction without residual deficits; Z87.891 Personal history of nicotine dependence; Z88.0 Allergy status to penicillin

== ENCOUNTER → 2020-06-18 | Outpatient (CLI) | payer MEDICARE ==
[2020-06-13 05:35] VITALS: BP 113/69
[~2020-06-18] MED LIST changes: +BACTRIM DS TAB1 EACH PO; +GOOD NEIGH1200 MG/15 PO; +LEVOFLOXACIN750 MG PO; +NORCO 325 MG-7.1 TA1 PO; +PROTONIX TR40 M1 PO; +SENNA8.6 M1 PO
[2020-06-18 15:17] LABS: EOS # 0.4 (0.04-0.40); HEMATOCRIT 36.7 % (42.0-52.0); HEMOGLOBIN 11.5 g/dL (13.5-18.0); LYMPH# 1.7 (1.50-4.00); MEAN CELL VOLUME 93 fl (78-100); MEAN CORPUSCULAR HEMOGLOBIN 29 pg (27-31); MEAN CORPUSCULAR HGB CONC 31 g/dL (33-37); MEAN PLATELET VOLUME 9.9 fl (7.4-10.4); MONO # 0.9 (0.20-0.80); NEU # 5.2 (1.40-6.50); PLATELET COUNT 239 K/mm3 (130-400); RED BLOOD COUNT 3.94 M/mm3 (4.20-5.60); RED CELL DISTRIBUTION WIDTH 14.4 % (11.5-14.5); WHITE BLOOD COUNT 8.3 K/mm3 (4.8-10.8)
[2020-06-18 15:21] LABS: ALBUMIN 3.6 g/dL (3.4-4.8)
[2020-06-18 15:22] LABS: POTASSIUM 4.7 mmol/L (3.5-5.1)
[2020-06-18 15:23] LABS: CALCIUM 8.8 mg/dL (8.3-10.5)
[2020-06-18 15:26] LABS: TOTAL BILIRUBIN 0.4 mg/dL (0.2-1.2)
[2020-06-18 15:30] LABS: MAGNESIUM 2.1 mg/dL (1.60-2.60)
[2020-06-18 18:35] LABS: PH-URINE 5.5 (5.0 - 8.0); URINE APPEARANCE CLEAR; URINE BILIRUBIN NEGATIVE (NEGATIVE); URINE BLOOD NEGATIVE (NEGATIVE); URINE COLOR YELLOW; URINE GLUCOSE NEGATIVE (NEGATIVE); URINE KETONE NEGATIVE (NEGATIVE); URINE LEUKOCYTE ESTERASE NEGATIVE (NEGATIVE); URINE MUCUS PRESENT (NOT PRESENT); URINE NITRATE NEGATIVE (NEGATIVE); URINE PROTEIN(semi-quant) TRACE mg/dL (NEGATIVE); URINE UROBILINOGEN NORMAL (NORMAL)
== END ==
LOC: LAB 15:03
PROVIDERS: Internal Medicine
DX: Z01.818 Encounter for other preprocedural examination (principal); M48.061 Spinal stenosis, lumbar region without neurogenic claudication; N30.00 Acute cystitis without hematuria; R73.02 Impaired glucose tolerance (oral)

== ENCOUNTER → 2020-07-26 | Outpatient (CLI) | payer MEDICARE ==
[2020-07-26 12:45] LABS: EOS # 0.4 (0.04-0.40); EOS % 4.9 % (0.0-4.0); HEMOGLOBIN 12.7 g/dL (13.5-18.0); LYMPH# 1.7 (1.50-4.00); MEAN CELL VOLUME 92 fl (78-100); MEAN CORPUSCULAR HEMOGLOBIN 29 pg (27-31); MEAN CORPUSCULAR HGB CONC 32 g/dL (33-37); MEAN PLATELET VOLUME 10.6 fl (7.4-10.4); MONO # 0.9 (0.20-0.80); NEU # 4.6 (1.40-6.50); PLATELET COUNT 195 K/mm3 (130-400); RED BLOOD COUNT 4.33 M/mm3 (4.20-5.60); RED CELL DISTRIBUTION WIDTH 14.6 % (11.5-14.5); WHITE BLOOD COUNT 7.6 K/mm3 (4.8-10.8)
[2020-07-26 13:01] LABS: POTASSIUM 4.3 mmol/L (3.5-5.1)
[2020-07-26 13:04] LABS: TOTAL PROTEIN 7.7 g/dL (6.2-8.1)
[2020-07-26 13:06] LABS: TOTAL BILIRUBIN 0.5 mg/dL (0.2-1.2)
[2020-07-26 13:11] LABS: MAGNESIUM 2.24 mg/dL (1.60-2.60)
== END ==
LOC: LAB 12:23
PROVIDERS: Internal Medicine
DX: Z12.5 Encounter for screening for malignant neoplasm of prostate (principal); I25.10 Atherosclerotic heart disease of native coronary artery without angina pectoris; E11.9 Type 2 diabetes mellitus without complications; K90.9 Intestinal malabsorption, unspecified; R20.2 Paresthesia of skin

== ENCOUNTER → 2020-08-14 | Outpatient (CLI) | payer MEDICARE ==
[2020-08-14 10:31] LABS: POTASSIUM 4.2 mmol/L (3.5-5.1)
[2020-08-14 10:32] LABS: CALCIUM 9.1 mg/dL (8.3-10.5)
[2020-08-14 10:33] LABS: TOTAL PROTEIN 6.9 g/dL (6.2-8.1)
[2020-08-14 10:35] LABS: TOTAL BILIRUBIN 0.5 mg/dL (0.2-1.2)
[2020-08-14 10:39] LABS: MAGNESIUM 2.03 mg/dL (1.60-2.60)
== END ==
LOC: LAB 09:59
PROVIDERS: Internal Medicine
DX: I25.10 Atherosclerotic heart disease of native coronary artery without angina pectoris (principal)

== ENCOUNTER → 2020-12-17 | Outpatient (CLI) | payer MEDICARE ==
[2020-12-17 09:27] LABS: POTASSIUM 4.1 mmol/L (3.5-5.1)
== END ==
LOC: LAB 09:03
DX: I10 Essential (primary) hypertension (principal)

== ENCOUNTER → 2021-08-19 | Outpatient (CLI) | payer MEDICARE ==
[2021-08-19 11:01] LABS: ALBUMIN 3.9 g/dL (3.4-4.8); POTASSIUM 4.1 mmol/L (3.5-5.1)
[2021-08-19 11:03] LABS: CALCIUM 9.1 mg/dL (8.3-10.5)
[2021-08-19 11:04] LABS: TOTAL PROTEIN 7.3 g/dL (6.2-8.1)
[2021-08-19 11:06] LABS: TOTAL BILIRUBIN 0.8 mg/dL (0.2-1.2)
[2021-08-19 11:09] LABS: URINE APPEARANCE CLEAR; URINE BILIRUBIN NEGATIVE (NEGATIVE); URINE BLOOD NEGATIVE (NEGATIVE); URINE COLOR YELLOW; URINE GLUCOSE NEGATIVE (NEGATIVE); URINE KETONE NEGATIVE (NEGATIVE); URINE LEUKOCYTE ESTERASE NEGATIVE (NEGATIVE); URINE NITRATE NEGATIVE (NEGATIVE); URINE PROTEIN(semi-quant) NEGATIVE (NEGATIVE); URINE UROBILINOGEN NORMAL (NORMAL); URINE WBC 0-1 /hpf (0-3)
[2021-08-19 11:10] LABS: MAGNESIUM 1.93 mg/dL (1.60-2.60)
[2021-08-19 11:53] LABS: ERYTHROCYTE SEDIMENTATION RATE 21 mm/hr (0-20)
[2021-08-19 11:55] LABS: BASO # 0.03 K/mm3 (0.02-0.10); EOS # 0.24 K/mm3 (0.04-0.40); EOS % 3.1 % (0.0-4.0); HEMATOCRIT 42.6 % (42.0-52.0); HEMOGLOBIN 13.8 g/dL (13.5-18.0); MEAN CELL VOLUME 94 fl (78-100); MEAN CORPUSCULAR HEMOGLOBIN 30 pg (27-31); MEAN CORPUSCULAR HGB CONC 32 g/dL (33-37); MEAN PLATELET VOLUME 11.4 fl (7.4-10.4); MONO # 0.78 K/mm3 (0.20-0.80); NEU # 5.38 K/mm3 (1.40-6.50); PLATELET COUNT 187 K/mm3 (130-400); RED BLOOD COUNT 4.54 M/mm3 (4.20-5.60); RED CELL DISTRIBUTION WIDTH 12.3 % (11.5-14.5); WHITE BLOOD COUNT 7.9 K/mm3 (4.8-10.8)
[2021-08-19 23:11] LABS: CREATININE OTHER SOURCE 26 mg/dL (())
== END ==
LOC: LAB 10:07
PROVIDERS: Internal Medicine
DX: Z12.5 Encounter for screening for malignant neoplasm of prostate (principal); K90.9 Intestinal malabsorption, unspecified; I25.10 Atherosclerotic heart disease of native coronary artery without angina pectoris; E11.9 Type 2 diabetes mellitus without complications

== ENCOUNTER → 2022-04-02 | Outpatient (CLI) | payer MEDICARE ==
[2022-04-02 10:45] LABS: BASO # 0.03 K/mm3 (0.02-0.10); EOS # 0.15 K/mm3 (0.04-0.40); EOS % 1.4 % (0.0-4.0); HEMOGLOBIN 13.2 g/dL (13.5-18.0); LYMPH# 1.41 K/mm3 (1.50-4.00); MEAN CELL VOLUME 94 fl (78-100); MEAN CORPUSCULAR HEMOGLOBIN 31 pg (27-31); MEAN CORPUSCULAR HGB CONC 33 g/dL (33-37); MEAN PLATELET VOLUME 10.8 fl (7.4-10.4); MONO # 0.88 K/mm3 (0.20-0.80); PLATELET COUNT 178 K/mm3 (130-400); RED BLOOD COUNT 4.25 M/mm3 (4.20-5.60); WHITE BLOOD COUNT 10.6 K/mm3 (4.8-10.8)
[2022-04-02 10:50] LABS: POTASSIUM 4.3 mmol/L (3.5-5.1)
[2022-04-02 10:51] LABS: ALBUMIN 3.9 g/dL (3.4-4.8)
[2022-04-02 10:52] LABS: CALCIUM 9.5 mg/dL (8.3-10.5)
[2022-04-02 10:53] LABS: TOTAL PROTEIN 7.5 g/dL (6.2-8.1)
[2022-04-02 10:55] LABS: TOTAL BILIRUBIN 0.9 mg/dL (0.2-1.2)
[2022-04-02 11:00] LABS: MAGNESIUM 2.05 mg/dL (1.60-2.60)
== END ==
LOC: LAB 10:34
PROVIDERS: Internal Medicine
DX: M17.0 Bilateral primary osteoarthritis of knee (principal); M1A.00X0 Idiopathic chronic gout, unspecified site, without tophus (tophi); I50.22 Chronic systolic (congestive) heart failure; I10 Essential (primary) hypertension; I25.10 Atherosclerotic heart disease of native coronary artery without angina pectoris; G47.33 Obstructive sleep apnea (adult) (pediatric); M48.062 Spinal stenosis, lumbar region with neurogenic claudication; E11.9 Type 2 diabetes mellitus without complications; K90.9 Intestinal malabsorption, unspecified

== ENCOUNTER → 2022-07-24 | Outpatient (CLI) | payer MEDICARE | LOC: RAD 10:46 | DX: M19.072 Primary osteoarthritis, left ankle and foot (principal); S99.922A Unspecified injury of left foot, initial encounter; X58.XXXA Exposure to other specified factors, initial encounter ==

== ENCOUNTER → 2022-12-01 | Outpatient (CLI) | payer MEDICARE ==
[2022-12-01 12:55] LABS: URINE WBC 0 /hpf (0-3)
[2022-12-01 13:02] LABS: BASO # 0.02 K/mm3 (0.02-0.10); EOS % 0.9 % (0.0-4.0); HEMATOCRIT 41.9 % (42.0-52.0); HEMOGLOBIN 13.7 g/dL (13.5-18.0); LYMPH# 1.61 K/mm3 (1.50-4.00); MEAN CELL VOLUME 92 fl (78-100); MEAN CORPUSCULAR HEMOGLOBIN 30 pg (27-31); MEAN CORPUSCULAR HGB CONC 33 g/dL (33-37); MEAN PLATELET VOLUME 10.6 fl (7.4-10.4); MONO # 0.82 K/mm3 (0.20-0.80); NEU # 8.41 K/mm3 (1.40-6.50); PLATELET COUNT 193 K/mm3 (130-400); RED BLOOD COUNT 4.56 M/mm3 (4.20-5.60); RED CELL DISTRIBUTION WIDTH 12.3 % (11.5-14.5)
[2022-12-01 13:10] LABS: ALBUMIN 4.1 g/dL (3.4-4.8); POTASSIUM 4.4 mmol/L (3.5-5.1)
[2022-12-01 13:11] LABS: CALCIUM 9.2 mg/dL (8.3-10.5)
[2022-12-01 13:12] LABS: TOTAL PROTEIN 7.8 g/dL (6.2-8.1)
[2022-12-01 13:14] LABS: TOTAL BILIRUBIN 0.9 mg/dL (0.2-1.2)
[2022-12-01 13:19] LABS: MAGNESIUM 1.91 mg/dL (1.60-2.60)
[2022-12-01 14:11] LABS: URINE APPEARANCE CLEAR; URINE BILIRUBIN NEGATIVE (NEGATIVE); URINE BLOOD NEGATIVE (NEGATIVE); URINE COLOR YELLOW; URINE GLUCOSE NEGATIVE (NEGATIVE); URINE KETONE NEGATIVE (NEGATIVE); URINE LEUKOCYTE ESTERASE NEGATIVE (NEGATIVE); URINE NITRATE NEGATIVE (NEGATIVE); URINE PROTEIN(semi-quant) TRACE (NEGATIVE); URINE UROBILINOGEN NORMAL (NORMAL)
[2022-12-01 14:12] LABS: URINE MUCUS PRESENT (NOT PRESENT)
[2022-12-01 14:28] LABS: ERYTHROCYTE SEDIMENTATION RATE 20 mm/hr (0-20)
[2022-12-01 22:31] LABS: CREATININE OTHER SOURCE 48 mg/dL (47-110)
== END ==
LOC: LAB 09:34
PROVIDERS: Internal Medicine
DX: Z12.11 Encounter for screening for malignant neoplasm of colon (principal); Z12.5 Encounter for screening for malignant neoplasm of prostate; I11.0 Hypertensive heart disease with heart failure; I50.22 Chronic systolic (congestive) heart failure; I25.10 Atherosclerotic heart disease of native coronary artery without angina pectoris; N20.0 Calculus of kidney; E53.8 Deficiency of other specified B group vitamins; E55.9 Vitamin D deficiency, unspecified; E11.9 Type 2 diabetes mellitus without complications; K90.9 Intestinal malabsorption, unspecified; E78.5 Hyperlipidemia, unspecified

== ENCOUNTER → 2023-08-19 | Outpatient (CLI) | payer MEDICARE ==
[2023-08-19 17:11] LABS: ALBUMIN 4.1 g/dL (3.4-4.8)
[2023-08-19 17:13] LABS: CALCIUM 10.9 mg/dL (8.3-10.5)
[2023-08-19 17:14] LABS: TOTAL PROTEIN 7.9 g/dL (6.2-8.1)
[2023-08-19 17:16] LABS: TOTAL BILIRUBIN 0.8 mg/dL (0.2-1.2)
== END ==
LOC: LAB 16:17
PROVIDERS: Family Medicine
DX: R10.11 Right upper quadrant pain (principal)

== ENCOUNTER → 2023-09-10 | Outpatient (CLI) | payer MEDICARE, BC ==
[2023-09-10 11:19] LABS: ALBUMIN 3.9 g/dL (3.4-4.8)
[2023-09-10 11:20] LABS: CALCIUM 9.6 mg/dL (8.3-10.5)
[2023-09-10 11:21] LABS: BASO # 0.02 K/mm3 (0.02-0.10); EOS # 0.15 K/mm3 (0.04-0.40); EOS % 1.4 % (0.0-4.0); HEMATOCRIT 39.3 % (42.0-52.0); HEMOGLOBIN 12.6 g/dL (13.5-18.0); LYMPH# 1.92 K/mm3 (1.50-4.00); MEAN CELL VOLUME 92 fl (78-100); MEAN CORPUSCULAR HEMOGLOBIN 29 pg (27-31); MEAN CORPUSCULAR HGB CONC 32 g/dL (33-37); MEAN PLATELET VOLUME 11.3 fl (7.4-10.4); MONO # 0.82 K/mm3 (0.20-0.80); NEU # 7.76 K/mm3 (1.40-6.50); PLATELET COUNT 170 K/mm3 (130-400); RED BLOOD COUNT 4.29 M/mm3 (4.20-5.60); RED CELL DISTRIBUTION WIDTH 12.4 % (11.5-14.5); WHITE BLOOD COUNT 10.7 K/mm3 (4.8-10.8)
[2023-09-10 11:22] LABS: TOTAL PROTEIN 7.4 g/dL (6.2-8.1)
[2023-09-10 11:24] LABS: TOTAL BILIRUBIN 1.1 mg/dL (0.2-1.2)
[2023-09-10 11:28] LABS: MAGNESIUM 1.71 mg/dL (1.60-2.60)
== END ==
LOC: LAB 10:56
PROVIDERS: Internal Medicine
DX: R06.00 Dyspnea, unspecified (principal); E11.9 Type 2 diabetes mellitus without complications; E78.5 Hyperlipidemia, unspecified; M1A.00X0 Idiopathic chronic gout, unspecified site, without tophus (tophi); I48.0 Paroxysmal atrial fibrillation; K90.9 Intestinal malabsorption, unspecified

== ENCOUNTER → 2023-12-20 | Outpatient (CLI) | payer BC ==
[2023-12-20 09:48] LABS: BASO # 0.02 K/mm3 (0.02-0.10); EOS % 2.1 % (0.0-4.0); HEMATOCRIT 40.3 % (42.0-52.0); HEMOGLOBIN 13.1 g/dL (13.5-18.0); LYMPH# 1.87 K/mm3 (1.50-4.00); MEAN CELL VOLUME 92 fl (78-100); MEAN CORPUSCULAR HEMOGLOBIN 30 pg (27-31); MEAN CORPUSCULAR HGB CONC 33 g/dL (33-37); MEAN PLATELET VOLUME 10.8 fl (7.4-10.4); MONO # 0.73 K/mm3 (0.20-0.80); PLATELET COUNT 172 K/mm3 (130-400); RED CELL DISTRIBUTION WIDTH 12.3 % (11.5-14.5); WHITE BLOOD COUNT 9.5 K/mm3 (4.8-10.8)
[2023-12-20 09:54] LABS: ALBUMIN 3.7 g/dL (3.4-4.8)
[2023-12-20 09:55] LABS: CALCIUM 9.7 mg/dL (8.3-10.5)
[2023-12-20 09:58] LABS: TOTAL BILIRUBIN 0.7 mg/dL (0.2-1.2)
[2023-12-20 10:03] LABS: MAGNESIUM 1.91 mg/dL (1.60-2.60)
[2023-12-20 10:43] LABS: URINE APPEARANCE CLEAR (CLEAR); URINE BILIRUBIN NEGATIVE (NEGATIVE); URINE COLOR YELLOW (YELLOW); URINE GLUCOSE NEGATIVE (NEGATIVE); URINE KETONE NEGATIVE (NEGATIVE); URINE PROTEIN(semi-quant) NEGATIVE (NEGATIVE)
[2023-12-20 10:44] LABS: URINE BLOOD NEGATIVE (NEGATIVE); URINE LEUKOCYTE ESTERASE NEGATIVE (NEGATIVE); URINE NITRATE NEGATIVE (NEGATIVE); URINE WBC 0-1 /hpf (0-3)
[2023-12-20 23:37] LABS: CREATININE OTHER SOURCE 60 mg/dL (47-110)
== END ==
LOC: LAB 09:31
PROVIDERS: Internal Medicine
DX: Z12.5 Encounter for screening for malignant neoplasm of prostate (principal); Z12.11 Encounter for screening for malignant neoplasm of colon; K90.9 Intestinal malabsorption, unspecified; I10 Essential (primary) hypertension; M1A.00X0 Idiopathic chronic gout, unspecified site, without tophus (tophi); E78.5 Hyperlipidemia, unspecified; E11.9 Type 2 diabetes mellitus without complications

== ENCOUNTER → 2024-03-28 | Outpatient (CLI) | payer MEDICARE ==
[2024-03-28 12:19] LABS: CALCIUM 9.4 mg/dL (8.3-10.5)
[2024-03-28 12:20] LABS: TOTAL PROTEIN 7.2 g/dL (6.2-8.1)
[2024-03-28 12:22] LABS: TOTAL BILIRUBIN 0.9 mg/dL (0.2-1.2)
[2024-03-28 12:27] LABS: MAGNESIUM 2.13 mg/dL (1.60-2.60)
== END ==
LOC: LAB 11:57
PROVIDERS: Internal Medicine
DX: I10 Essential (primary) hypertension (principal); E11.9 Type 2 diabetes mellitus without complications

== ENCOUNTER → 2024-06-30 | Outpatient (CLI) | payer MEDICARE ==
[2024-07-03 11:35] LABS: BASO # 0.03 K/mm3 (0.02-0.10); EOS # 0.06 K/mm3 (0.04-0.40); EOS % 0.7 % (0.0-4.0); HEMATOCRIT 41.7 % (42.0-52.0); HEMOGLOBIN 13.9 g/dL (13.5-18.0); LYMPH# 1.59 K/mm3 (1.50-4.00); MEAN CELL VOLUME 92 fl (78-100); MEAN CORPUSCULAR HEMOGLOBIN 31 pg (27-31); MEAN CORPUSCULAR HGB CONC 33 g/dL (33-37); MEAN PLATELET VOLUME 10.5 fl (7.4-10.4); MONO # 0.69 K/mm3 (0.20-0.80); NEU # 6.29 K/mm3 (1.40-6.50); PLATELET COUNT 180 K/mm3 (130-400); RED BLOOD COUNT 4.53 M/mm3 (4.20-5.60); RED CELL DISTRIBUTION WIDTH 11.8 % (11.5-14.5); WHITE BLOOD COUNT 8.7 K/mm3 (4.8-10.8)
[2024-07-03 11:41] LABS: CALCIUM 9.2 mg/dL (8.3-10.5); MAGNESIUM 1.98 mg/dL (1.60-2.60); TOTAL BILIRUBIN 0.8 mg/dL (0.2-1.2); TOTAL PROTEIN 7.7 g/dL (6.2-8.1)
== END ==
LOC: LAB 13:04
PROVIDERS: Internal Medicine
DX: I10 Essential (primary) hypertension (principal); I25.10 Atherosclerotic heart disease of native coronary artery without angina pectoris; E11.9 Type 2 diabetes mellitus without complications; M1A.00X0 Idiopathic chronic gout, unspecified site, without tophus (tophi)

== ENCOUNTER → 2024-10-09 | Outpatient (CLI) | payer MEDICARE ==
[2024-10-09 12:53] LABS: CALCIUM 9.7 mg/dL (8.3-10.5)
[2024-10-09 12:54] LABS: TOTAL PROTEIN 8.1 g/dL (6.2-8.1)
[2024-10-09 12:55] LABS: PH-URINE 5.5 (5.0 - 8.0); URINE APPEARANCE CLEAR (CLEAR); URINE BILIRUBIN NEGATIVE (NEGATIVE); URINE BLOOD 2+ (NEGATIVE); URINE COLOR YELLOW (YELLOW); URINE GLUCOSE NEGATIVE (NEGATIVE); URINE KETONE NEGATIVE (NEGATIVE); URINE LEUKOCYTE ESTERASE 1+ (NEGATIVE); URINE NITRATE NEGATIVE (NEGATIVE); URINE PROTEIN(semi-quant) NEGATIVE (NEGATIVE)
[2024-10-09 12:56] LABS: TOTAL BILIRUBIN 0.8 mg/dL (0.2-1.2); URINE MUCUS PRESENT (NOT PRESENT)
[2024-10-09 13:01] LABS: MAGNESIUM 1.85 mg/dL (1.60-2.60)
== END ==
LOC: LAB 12:21
PROVIDERS: Internal Medicine
DX: N39.0 Urinary tract infection, site not specified (principal); E11.9 Type 2 diabetes mellitus without complications; I10 Essential (primary) hypertension

== ENCOUNTER → 2024-10-27 | Outpatient (CLI) | payer MEDICARE | LOC: RAD 11:52 | DX: M47.816 Spondylosis without myelopathy or radiculopathy, lumbar region (principal); M43.16 Spondylolisthesis, lumbar region; Z98.890 Other specified postprocedural states ==